=== PATIENT | male | born 1990 | race African-American/Black ===

== ENCOUNTER 2023-11-27 14:42 | Emergency (ER) | payer SELFPAY ==
[2023-11-27 14:42] VITALS: BMI 33.5
[2023-11-27 14:46] VITALS: BP 127/79
[2023-11-27] MEDS: DECADRON 10 MG PO (15:24)
[2023-11-27] MEDS: TORADOL 30 MG IM (15:25)
[2023-11-27] MEDS: CLEOCIN 450 MG PO ×2 (15:43→20:46)
--- NOTE | 2023-11-27 15:49 | ED.GENMED ---
History of Present Illness
General
Chief Complaint: Throat Problem
Source: patient
Exam Limitations: none
Time Seen by Provider: 11/27/23 15:10
Nursing documentation reviewed up to this point in time: agreed with
Travel History
Have you had any contact with someone who has COVID-19?: No
Do you have any symptoms of coronavirus? Fever > 100 degrees, chills, cough, shortness of breath, sore throat, loss of taste or smell, muscle aches, or headache?: Yes
Symptoms:: sore throat
History of Present Illness
History of Present Illness:
33-year-old male with no significant chronic medical problems who presents to the emergency room for evaluation of throat pain. Patient reports that he has a history of recurrent tonsillitis usually gets it almost every year. He says that he has
had a sore throat this time for the past 7 to 10 days. He says that throat pain has been constant and worsening since then. He says that he was seen at [facility] a few days after onset and he was told that he likely had a small
tonsillar abscess but that it was not large enough to drain. He says that he was given 'steroid shot' but was not given antibiotics�he says that 'I did not think they were helping me and so I left.' He says since then his sore throat has worsened
and so he came back to the emergency room to be reassessed. He has not had fever or chills. He denies any vomiting. He denies any other complaints.
Past History
Past History
ED Past Medical History: None
ED Past Surgical History: None
Social History
Tobacco: Smoker
Personal: Single
Employment: Employed
Review of Systems
Review of Systems
All Other Systems: ROS reviewed and negative except as documented in HPI and ROS
Constitutional: Denies fever or chills
EENT: Reports sore throat; Denies runny nose
Respiratory: Denies cough or trouble breathing
Cardiac: Denies chest pain
ABD/GI: Denies abdominal pain or vomiting
Musculoskeletal: Denies neck pain or back pain
Neurological: Denies headache
Phy Exam
Physical Exam
Physical Exam:
General: Awake, alert, oriented x3; no acute distress
Head: Normocephalic, atraumatic
Eyes: Conjunctiva normal
Throat: Airway intact, handling secretions, no tongue elevation; he has marked swelling of the left tonsil with some deviation of the uvula towards the right; he has erythema of the tonsils bilaterally with some slight exudate
Neck: Trachea midline, supple without meningismus, left-sided palpable cervical adenopathy
Lungs: Breathing comfortably not in distress
Heart: Regular rate
Neuro: No gross deficits
Skin: no rash
Extremities: Warm and well-perfused
Scores
Heart Failure Risk
Heart Failure Risk Score: Not Applicable
Heart Score for Chest Pain Patients
STEMI patient?: Not applicable
Withdrawal Assessment of Alcohol
Withdrawal Assessment Completed?: Not applicable
Course
Orders/Labs/Results
Orders:
Orders
11/27/23 14:52
Rapid Strep Group A Urgent
PATRICIA Source: Throat/Pharynx
Specimen Description:
Date Specimen was Collected: 11/27/23
Time Specimen was Collected: 14:48
11/27/23 15:14
Dexamethasone [Decadron] 10 mg PO NOW STA
Ketorolac [Toradol] 30 mg IM NOW STA
11/27/23 15:23
CT Neck With Iv Contrast Urgent
Comment:
Reason For Exam: left [employer]
11/27/23 15:28
Clindamycin HCl [Cleocin] 450 mg PO NOW STA
Dexamethasone Sod Phosphate [Decadron] 10 mg IV NOW STA
Ketorolac [Toradol] 15 mg IV NOW STA
11/27/23 15:33
Complete Blood Count/With Diff Urgent
Comprehensive Metabolic Panel Urgent
Monotest Urgent
Abnormal Lab Results
11/27/23
15:33
WBC 13.7 H 10^3/uL
(4.8-10.8)
RBC 4.68 L 10^6/uL
(4.70-6.10)
MCHC 32.9 L g/dL
(33.0-37.0)
Abs Immat Gran (auto) 0.1 H 10^3/uL
(0-0.05)
Absolute Neuts (auto) 9.4 H 10^3/uL
(1.4-6.5)
Absolute Monos (auto) 1.2 H 10^3/uL
(0.1-0.6)
Lymphocytes % 20.3 L %
(20.5-51.1)
Glucose 102 H mg/dl
(70-99)
11/27/23 15:33
11/27/23 15:33
Vital Signs
Initial and Last Documented VS:
Initial Vital Signs
Temp Pulse Resp BP Pulse Ox
36.9 C 93 18 127/79 99
11/27/23 14:46 11/27/23 14:46 11/27/23 14:46 11/27/23 14:46 11/27/23 14:46
Last Documented Vital Signs
Temp Pulse Resp BP Pulse Ox
36.9 C 93 18 127/79 99
11/27/23 14:46 11/27/23 14:46 11/27/23 14:46 11/27/23 14:46 11/27/23 15:30
MDM/Problems Addressed
Differential Diagnosis Includes:
Peritonsillar abscess, strep pharyngitis/tonsillitis, mononucleosis
MDM/Problems Addressed:
33-year-old male presents for evaluation of worsening throat pain over the past week plus. He says he was told he had a small abscess about a week ago when he was seen at [facility] was given a steroid shot but no antibiotics since then. Symptoms
worsening and so he came here. His vital signs are normal. Exam as above. Highly concerning for peritonsillar abscess on the left. Discussed with ENT�CT of the neck. Will treat with Toradol, Decadron and start with clindamycin. Will send basic
labs. Reassess after the above.
Labs reviewed: CBC shows leukocytosis to 13.7. CMP unremarkable. Monotest was negative. CT of the neck shows findings consistent with a left peritonsillar abscess. Case discussed with ENT who are at bedside evaluating.
ENT performed I&D at bedside. Recommended discharge on antibiotics will follow-up in the office as an outpatient. Spoke with patient about return precautions all questions answered.
*Radiology
Radiology exam reviewed: radiology read reviewed
*Pulse Oximetry
Patient hypoxic: no
*Critical Care Note
Total Time (30-74mins, 75-104mins- exclusive of procedures): Not Applicable
Data Reviewed
Source: patient
Patient Management
Discussion with other providers: Dethistler Operator (Discussed with ENT)
ED Attending Note
-
Portions of this chart may have been created with voice recognition software.� Occasional wrong word or��sound alike� substitutions may have occurred due to the inherent limitations of voice recognition software.
Discharge Plan
Departure
Patient Disposition: Home (Routine Discharge)
Date of Disposition: 11/27/23
Time of Disposition: 20:32
Patient with high blood pressure during this ER visit?: No
Discharge Problem:
Abscess, peritonsillar
Instructions: Peritonsillar Abscess, Adult (DC)
Prescriptions:
New
clindamycin HCl 150 mg capsule
450 mg PO TID 7 Days Qty: 63 0RF
No Action
clindamycin HCl 300 mg capsule
300 mg PO TID Qty: 21 0RF
methylprednisolone [Medrol (Robin)] 4 mg tablets,dose pack
See Rx Instructions .ROUTE .COMPLEX Qty: 21 0RF
Rx Instructions:
orally per package directions
Referrals:
Jero Santos MD [Active] - Call in 1-3 days for appt (ENT)
Activity Restrictions/Additional Instructions:
Thank you for visiting the Emergency Department at [facility].
1. Please schedule a follow up appointment as directed. Call first thing tomorrow morning to make an appointment.
2. If indicated, please take your medications as instructed and indicated on discharge paperwork.
3. If any of your symptoms do not improve, or persist, or become more severe within 6-12 hours, please return to the emergency department for further care.
4. Please return to the emergency department if you develop a headache, neck pain/stiffness, fever greater than 100.4F, chest pain, shortness of breath, persistent nausea, vomiting, slurred speech, difficulty walking, numbness/tingling, weakness,
signs of infection or any other symptoms that are worrisome to you.
Please call [phone] if you have any questions.
Interventions
Interventions:
*Risk Screen - Suicide Last Done: 11/27/23 14:48
*General Assessment Last Done: 11/27/23 14:48
*Neglect/Abuse Screening Last Done: 11/27/23 14:48
ED- Fall Risk Assessment Last Done: 11/27/23 15:30
*ED COVID-19 Vaccine History Last Done: 11/27/23 15:30
ED-EENT Assessment Last Done: 11/27/23 15:30
ED- Pulmonary Assessment Last Done: 11/27/23 15:30
Discharge Date and Time
Print Language: LUX[place]BOURG[place]
[2023-11-27 15:58] LABS: % Basophils 0.3 % (0-2); % Eosinophils 1.2 % (0-6); % Immature Granulocytes 0.4 % (0-0.5); % Lymphocytes 20.3 % (20.5-51.1); % Monocytes 8.9 % (1.7-9.3); % Neutrophils 68.9 % (42.2-75.2); Absolute Eosinophils 0.2 10^3/uL (0-0.7); Absolute Immature Granulocytes 0.1 10^3/uL (0-0.05); Absolute Lymphocytes 2.8 10^3/uL (1.2-3.4); Absolute Monocytes 1.2 10^3/uL (0.1-0.6); Absolute Neutrophils 9.4 10^3/uL (1.4-6.5); Hematocrit 42.5 % (39.0-52.0); Mean Corp Hgb Conc. 32.9 g/dL (33.0-37.0); Mean Corpuscular Hgb 29.9 pg (27.0-31.0); Mean Corpuscular Volume 90.8 fL (80.0-94.0); Mean Platelet Volume 8.9 fL (7.4-10.4); Nucleated Red Blood Cells % 0 % (-); Platelet Count 272 10^3/uL (130-400); Red Blood Cell Count 4.68 10^6/uL (4.70-6.10); Red Cell Dist. Width 12.6 % (11.5-14.5); White Blood Cell Count 13.7 10^3/uL (4.8-10.8)
[2023-11-27 16:06] LABS: ALT (SGPT) 24 U/L (0-50); AST (SGOT) 24 U/L (17-59); Alkaline Phosphatase 67 U/L (38-126); Blood Urea Nitrogen 18 mg/dl (9-20); Calcium 9.2 mg/dl (8.4-10.2); Carbon Dioxide 28 mmol/L (22-30); Chloride 102 mmol/L (98-107); Estimated Creatinine Clearance > 125 ml/min; Glucose 102 mg/dl (70-99); Potassium 4.1 mmol/L (3.5-5.1); Sodium 138 mmol/L (135-145); Total Bilirubin 0.5 mg/dl (0.2-1.3); Total Protein 7.2 g/dl (6.3-8.2); eGFR > 60.00
[2023-11-27 16:14] LABS: Monotest Negative (Negative)
--- NOTE | 2023-11-27 20:29 | CON.MD ---
Consultation - Medical
-
sore throat x 1 week
Pt c 1 week hx of sore throat, Hx Peritonsillar abscess in past, presents with worsening L sided sore throat
PE - mild trismus
Left peritonsillar swelling
CT scan show phlegmon/ possible L peritonsillar abscess
A/P Left peritonsillar abscess
I & D performed after local anesthesia
Copious purulence expressed
Would d/c home on po Augmentin 875 BID
follow up ENT next week
[2023-11-27 20:52] VITALS: BP 122/77
== END 2023-11-27 20:56 | disposition home or self-care (01) ==
LOC: EMR 14:42
PROVIDERS: EMERGENCY PHYSICIAN Emergency Medicine
DX: J36 Peritonsillar abscess (principal); R07.0 Pain in throat; F17.200 Nicotine dependence, unspecified, uncomplicated
CPT/HCPCS: 99285; 42700; 96372; 70491; 80053; 85025; 86308; 87070; 87147; 87880; Q9967